=== PATIENT | female | born 1950 | race Two or more races ===

== ENCOUNTER 2023-05-22 10:52 | Emergency (ER) | payer OTHER ==
[~2023-05-22] VITALS: Ht 165.1 cm; Wt 73.5 kg
[2023-05-22] MEDS ORDERED: ELIQUIS5 MG PO (11:25)
[2023-05-22 14:18] LABS: PH,URINE 7.5 (5.0-8.0); URINE APPEARANCE Error; URINE BILIRRUBIN Negative (NEGATIVE); URINE BLOOD Moderate; URINE COLOR Yellow; URINE GLUCOSE Negative (NEGATIVE); URINE LEUKOCYTE Large; URINE NITRATE Negative; URINE PROTEIN Negative (NEGATIVE); URINE UROBILINOGEN 0.2 E.U./dl
[2023-05-22 14:22] LABS: URINE BACTERIA 31.5 uL (0.0-1933); URINE EPITHELIAL CELLS 3.2 uL (0.0-38.8); URINE RBC 3.4 uL (0.0-20.8); URINE WBC 631.4 uL (0.0-23.2)
== END 2023-05-22 16:10 | disposition home or self-care (01) ==
LOC: ER 10:52
PROVIDERS: General Practice
DX: N39.0 Urinary tract infection, site not specified (principal); R30.0 Dysuria